=== PATIENT | female | born 1970 | race Caucasian/White ===

== ENCOUNTER 2017-12-10 14:07 | Emergency (ER) | payer OTHER ==
[~2017-12-10] VITALS: Ht 160 cm; Wt 79.4 kg
[~2017-12-10 14:07] MED LIST: BYSTOLIC 5 MG5 M1 PO; COLACE100 MG PO; LEVOTHYROXINE0.2 M1 PO; NORCO 5-325 TA1 EACH PO; SLOW FE 160MG160 MG PO
[2017-12-10] MEDS ORDERED: NAPROSYN500 MG PO (15:16)
[2017-12-10] MEDS ORDERED: NORFLEX100 MG PO (15:16)
== END 2017-12-10 15:28 | disposition home or self-care (01) ==
LOC: ER 14:07
DX: S16.1XXA Strain of muscle, fascia and tendon at neck level, initial encounter (principal); S50.01XA Contusion of right elbow, initial encounter; S40.011A Contusion of right shoulder, initial encounter; S80.811A Abrasion, right lower leg, initial encounter; S60.511A Abrasion of right hand, initial encounter; I10 Essential (primary) hypertension; E03.9 Hypothyroidism, unspecified; Z86.2 Personal history of diseases of the blood and blood-forming organs and certain disorders involving the immune mechanism; V49.50XA Passenger injured in collision with unspecified motor vehicles in traffic accident, initial encounter; Y93.89 Activity, other specified; Y92.89 Other specified places as the place of occurrence of the external cause; Y99.8 Other external cause status